=== PATIENT | male | born 1985 ===

== ENCOUNTER 2020-10-08 20:30 | Emergency (ER) | payer SELFPAY ==
--- NOTE | 2020-10-08 21:01 | CR ---
PROCEDURE INFORMATION: Exam: XR Left Hand Exam date and time: 10/08/2020 8:42 PM Age: 35 years old Clinical indication: Injury or trauma; Fall; Puncture; Hand; Left; Additional info: Puncture wound TECHNIQUE: Imaging protocol: XR Left hand. Views: 3 or more views. COMPARISON: No relevant prior studies available. FINDINGS: Bones/joints: Normal. Soft tissues: Normal. IMPRESSION: No acute findings.
[2020-10-08] MEDS ORDERED: Lidocaine 1% 30 ML SDV INJECT ONE (21:09)
[2020-10-08] MEDS ORDERED: Bacitracin Oint 1 GM U/D Packet TOP ONE (21:09)
--- NOTE | 2020-10-08 22:01 | EDM.PDOC ---
ED HPI GENERAL MEDICAL PROBLEM - General Chief Complaint: Laceration Stated Complaint: AMBULANCE Time Seen by Provider: 10/08/20 20:30 Source of Information: Reports: Patient, EMS, RN History Limitations: Reports: No Limitations - History of Present Illness INITIAL COMMENTS - FREE TEXT/NARRATIVE: ED via [facility] report patient walking in wooded area, fell punctured left hand approximately one hour ago. Unable to get bleeding to stop. EMS report small 1cm laceration to palm Denied other injury. No fever chills, No known covid exposure. Denied an recent drug or alcohol use. Left Hand Pain Score (Numeric/FACES): 7 - Related Data Allergies Allergy/AdvReac Type Severity Reaction Status Date / Time ciprofloxacin Allergy Cannot Verified 10/08/20 20:29 Remember Home Meds: Home Meds . [No Known Home Meds] 10/08/20 [History] Social & Family History - Family History Family Medical History: No Pertinent Family History - Tobacco Use Tobacco Use Status *Q: Current Every Day Tobacco User Years of Tobacco use: 15 Packs/Tins Daily: 0.5 - Caffeine Use Caffeine Use: Reports: Energy Drinks - Recreational Drug Use Recreational Drug Use: Yes Drug Use in Last 12 Months: Yes Recreational Drug Type: Reports: Methamphetamine Recreational Drug Use Frequency: Patient Refuses To Answer ED ROS GENERAL - Review of Systems Review Of Systems: Comprehensive ROS is negative, except as noted in HPI. ED EXAM, SKIN/RASH Exam: See Below Exam Limited By: No Limitations General Appearance: Alert, Anxious, Mild Distress Eye Exam: Bilateral Eye: PERRL Ears: Normal External Exam Nose: Normal Inspection Throat/Mouth: Normal Oropharynx Head: Atraumatic, Normocephalic Neck: Normal Inspection Respiratory/Chest: No Respiratory Distress, Lungs Clear, Normal Breath Sounds Cardiovascular: Normal Peripheral Pulses, Regular Rate, Rhythm Extremities: Normal Range of Motion Neurological: Alert, Oriented, Normal Cognition Skin: Warm, Wound/Incision Location, Skin: Upper Extremity, Left Associated features: Tenderness ED SKIN PROCEDURES - Laceration/Wound Repair Left Upper Lateral Hand Appearance: Subcutaneous, Stellate Distal NVT: Neuro & Vascular Intact Anesthetic Type: Local Local Anesthesia - Lidocaine (Xylocaine): 1% Plain Local Anesthetic Volume: 1cc Exploration/Debridement/Repair: Wound Explored (attempted, gross bleeding) Closed with: Sutures Lac/Wound length In cm: 1 Suture Size: 4-0 # of Sutures: 1 Repaired with: Vicryl Sterile Dressing Applied: Nurse Tetanus Status Addressed: Yes Complication Description: Patient lest AMA Course - Vital Signs Last Recorded V/S: Last Vital Signs Temp 98 F 10/08/20 20:32 Pulse 100 10/08/20 20:32 Resp 19 10/08/20 20:32 BP 142/92 H 10/08/20 20:32 Pulse Ox 98 10/08/20 20:32 - Orders/Labs/Meds Meds: Medications Discontinued Medications Generic Name Dose Route Start Last Admin Trade Name Sina PRN Reason Stop Dose Admin Bacitracin 1 dose 10/08/20 21:09 10/08/20 22:30 Bacitracin Oint 1 Gm TOP 10/08/20 21:10 1 dose ONETIME ONE Administration Lidocaine HCl 30 ml 10/08/20 21:09 10/08/20 22:28 Xylocaine-Mpf 1% INJECT 10/08/20 21:10 30 ml ONETIME ONE Administration - Re-Assessments/Exams Free Text/Narrative Re-Assessment/Exam: 10/10/20 06:42 Pressure dressing per EMS. Bleeding controlled. Dressing removed. Initally no bleeding from jagged 1cm lac palmar surface below heads distal metapcarpal. Small arterial beeding during cleansing of wound and area. Xray , no obvious FB, Concern FB palpated in lateral palm proximal to 2nd metacarpal head. TC Dr Nance. Recommend po antibiotic and recheck if bleeding controlled During TC patient elped. Refused to stay , stated his ride here. Departure - Departure Time of Disposition: 22:33 Disposition: Against Medical Advice 07 Condition: Fair Clinical Impression: Laceration - Discharge Information *PRESCRIPTION DRUG MONITORING PROGRAM REVIEWED*: No *COPY OF PRESCRIPTION DRUG MONITORING REPORT IN PATIENT MAGDI: No Forms: ED Department Discharge Sepsis Event Note (ED) - Evaluation Sepsis Screening Result: No Definite Risk
== END 2020-10-08 22:34 | disposition left against medical advice (07) ==
LOC: DL.ED 20:30
DX: S61.412A Laceration without foreign body of left hand, initial encounter (principal); Z88.1 Allergy status to other antibiotic agents; Z72.0 Tobacco use; W26.8XXA Contact with other sharp object(s), not elsewhere classified, initial encounter
CPT/HCPCS: 12001; 73130-LT; 99282; 99284-25